=== PATIENT | male | born 1995 | race Caucasian/White ===

== ENCOUNTER → 2020-07-01 | Outpatient (CLI) | payer BC | LOC: COL.RAD 06:43 | DX: R51.9 Headache, unspecified (principal) ==

== ENCOUNTER → 2021-02-11 | Outpatient (CLI) | payer BC | LOC: COL.PUL 12:24 | DX: R06.02 Shortness of breath (principal); Z87.891 Personal history of nicotine dependence | CPT/HCPCS: J7674 ==

== ENCOUNTER → 2022-05-19 | Outpatient (CLI) | payer BC | LOC: COL.VAS 08:03 | DX: Z13.6 Encounter for screening for cardiovascular disorders (principal); Z86.718 Personal history of other venous thrombosis and embolism ==